=== PATIENT | male | born 1975 | race Caucasian/White ===

== ENCOUNTER 2019-03-12 09:45 | Emergency (ER) | payer OTHER ==
[~2019-03-12] VITALS: Ht 175.3 cm; Wt 73.5 kg
[2019-03-12] MEDS ORDERED: HYDROmorphone 2 MG/ML VIAL (DILAUDID) ONE (09:46)
[2019-03-12] MEDS ORDERED: HYDROmorphone 2 MG/ML VIAL (DILAUDID) IV ONE ×2 (10:00→10:45)
[2019-03-12] MEDS ORDERED: morphine INJ 10 MG/ML 1ML (SYR OR VIAL) IVP ONE (10:30)
--- NOTE | 2019-03-12 10:37 | NUR ---
DRY DRESSING PLACED OVER R HAND AND L FOOT.
--- NOTE | 2019-03-12 10:49 | NUR ---
CALLED [facility] THEIR RECOMMENDATION WAS TO IRRIGATE AREA AND HAVE FOLLOW UP IN CLINIC.
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
[2019-03-12] MEDS ORDERED: TETANUS,DIPTH,PERTUSS P/F (BOOSTRIX) 0.5 ML VIAL IM ONE (11:00)
[2019-03-12] MEDS ORDERED: HYDR-34 PO (11:05)
[2019-03-12] MEDS ORDERED: BACI28.4 TP (11:05)
[2019-03-12 11:34] VITALS: BP 135/58
== END 2019-03-12 11:34 | disposition home or self-care (01) ==
LOC: ER 09:48
DX: T25.211A Burn of second degree of right ankle, initial encounter (principal); T23.161A Burn of first degree of back of right hand, initial encounter; T24.132A Burn of first degree of left lower leg, initial encounter; Z88.6 Allergy status to analgesic agent; X11.8XXA Contact with other hot tap-water, initial encounter
CPT/HCPCS: 90715

== ENCOUNTER 2019-03-17 15:49 | Emergency (ER) | payer OTHER ==
[~2019-03-17] VITALS: Ht 175.3 cm; Wt 72.6 kg
[~2019-03-17 15:49] MED LIST: BACI28.4 TP; HYDR-34 PO
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
[2019-03-17] MEDS ORDERED: TRAM-42 PO (16:13)
[2019-03-17] MEDS ORDERED: fentaNYL INJECTION 100 MCG/2 ML AMP IM ONE (16:15)
[2019-03-17 16:28] VITALS: BP 131/87
== END 2019-03-17 16:28 | disposition home or self-care (01) ==
LOC: EDUNIT# 15:49 → ER 15:51
DX: T25.212A Burn of second degree of left ankle, initial encounter (principal); T23.001A Burn of unspecified degree of right hand, unspecified site, initial encounter; T31.0 Burns involving less than 10% of body surface; Z88.6 Allergy status to analgesic agent; X19.XXXA Contact with other heat and hot substances, initial encounter
CPT/HCPCS: 96372; 99284